=== PATIENT | female | born 1950 | race Hispanic/Latino ===

== ENCOUNTER 2017-10-08 09:21 | Outpatient (CLI) | payer MEDICARE, OTHER ==
--- NOTE | 2017-10-08 10:39 | Mammography Report ---
Screening tomomammogram and 2-D mammogram: 2-D compiled mammogram demonstrates a heterogeneously dense and symmetrically distributed fibroglandular pattern. When compared to exams dating back to August 2015 there is no obvious change in the left breast pattern. In the right breast there is a incompletely circumscribed nodule centrally in the CC projection questionably identified in the upper breast in the lateral view. In the lateral projection a small elongated circumscribed nodule is noted as well. The dominant nodule may be present on prior exams but larger on the current study. The remainder the breast pattern appears generally unchanged. Tomomammography demonstrates approximately 3 tiny circumscribed nodules in the left breast having benign characteristics. In the right breast is a cluster of 3 circumscribed nodules the largest measuring 12 mm. These are better defined in the CC than in the lateral sections. The findings are not otherwise remarkable. CAD used. Impression: Clustered nodules in the mid right breast. Recommendation: Right breast ultrasound. BI-RADS CATEGORY: 0 = Needs additional imaging evaluation ACR BI-RADS MAMMOGRAPHIC CODES: 0 = Needs additional imaging evaluation; 1 = Negative; 2 = Benign; 3 = Probably benign; 4 = Suspicious; 5 = Malignant; 6 = Known biopsy-proven malignancy COMMENT: 1. Dense breast tissue, i.e., adenosis, fibrocystic changes, etc., may obscure an underlying neoplasm. 2. Approximately 10% of cancers are not detected with mammography. 3. A negative mammography report should not delay biopsy if a clinically suspicious mass is present.
--- NOTE | 2017-10-08 10:42 | Mammography Report ---
BONE DENSITY STUDY: Postmenopausal screening. DEFINITIONS: BMD = Bone Mineral Density T-score = BMD related to mean peak bone mass of young adult (mean expressed in Standard Deviation) Z-score = Age matched BMD expressed in SD World Health Organization (WHO) Diagnostic Criteria Normal T-score > -1 SD Osteopenia T-score between -1 and -2.4 SD Osteoporosis T-score -2.5 SD or below FINDINGS: The weighted average BMD of lumbar spine L1-L4 is 0.986 with a T-score of -0.6. The weighted average BMD of the left hip is 0.872 with a T-score of -0.6. IMPRESSION: The patient's average T-score is diagnostic for normal bone density and low relative risk for fracture. NOTE: BMD is not the only risk factor for fracture; also consider factors such as the patient's age, risk of falling, previous osteoporotic fracture, family history of osteoporotic fractures, current smoker, and low body weight. Johnson's triangle is a region of interest in femur, predominantly of trabecular bone. It is not a true anatomic site, and [facility] does not recommend its use clinically.
== END 2017-10-08 09:22 | disposition home or self-care (01) ==
LOC: MAMMO 09:21
PROVIDERS: ATTEND Obstetrics & Gynecology Gynecology
DX: Z12.31 Encounter for screening mammogram for malignant neoplasm of breast (principal); Z78.0 Asymptomatic menopausal state
CPT/HCPCS: 77063; 77067; 77080

== ENCOUNTER 2017-11-03 15:03 | Outpatient (CLI) | payer MEDICARE, OTHER ==
--- NOTE | 2017-11-03 16:10 | Ultrasound Report ---
Right breast ultrasound: This examination performed based on tomomammogram in September 2017. A cluster of discrete nodules are noted in the 12:00 location. Ultrasound in the 12:00 location approximately 3 cm from the nipple demonstrates a cluster of 4 circumscribed masses. The largest of these measuring 12 mm and is anechoic. The other 3 are closely clustered and smaller. One of these measures 6.6 mm and contains a scattering of dotted echoes. A fourth nodule measuring 6.6 mm is mostly anechoic with a few echoes. anechoic. No internal flow in any of the nodules. Impression: The findings appear to represent a combination of simple and complex cysts. Recommendation: Repeat ultrasound in 6 months to reevaluate findings. BI-RADS CATEGORY: 3 = Probably benign ACR BI-RADS MAMMOGRAPHIC CODES: 0 = Needs additional imaging evaluation; 1 = Negative; 2 = Benign; 3 = Probably benign; 4 = Suspicious; 5 = Malignant; 6 = Known biopsy-proven malignancy COMMENT: 1. Dense breast tissue, i.e., adenosis, fibrocystic changes, etc., may obscure an underlying neoplasm. 2. Approximately 10% of cancers are not detected with mammography. 3. A negative mammography report should not delay biopsy if a clinically suspicious mass is present.
== END 2017-11-03 15:04 | disposition home or self-care (01) ==
LOC: US 15:03
PROVIDERS: ATTEND Obstetrics & Gynecology Gynecology
DX: N63.20 Unspecified lump in the left breast, unspecified quadrant (principal); R92.8 Other abnormal and inconclusive findings on diagnostic imaging of breast

== ENCOUNTER 2021-01-31 09:01 | Outpatient (CLI) | payer MEDICARE ==
--- NOTE | 2021-01-31 10:05 | Mammography Report ---
DIGITAL SCREENING MAMMOGRAM WITH CAD, 01/31/2021 CLINICAL INFORMATION / INDICATION: Routine screening TECHNIQUE: Digital bilateral 2D mammography was obtained in the craniocaudal and mediolateral obliqu e projections. This examination was interpreted with the benefit of Computer-Aided Detection analysis . COMPARISON: 12/07/2019 FINDINGS: Breast Density: The breasts are heterogeneously dense, which may obscure small masses. No dominant mass, suspicious calcifications, or architectural distortion in either breast. Mild benign-appearing nodularity is again seen. IMPRESSION: No mammographic evidence of malignancy. Follow up recommendation: Routine yearly BI-RADS Category 2: Benign. A "normal" or negative report should not discourage follow up or biopsy of a clinically significant f inding. A written summary of these findings will be mailed to the patient. The patient will be entered into a mammography reporting system which will generate a reminder letter for the patient's next appointmen t at the appropriate interval. The [employer] recommends yearly mammograms starting at age 40 and continuing as l arun as a woman is in good health. Breast MRI is recommended for women with an approximate 20-25% or greater lifetime risk of breast cancer, including women with a strong family history of breast or ova leon cancer or who have been treated for Hodgkin's disease. Signer Name: James Hutchins MD Signed: 01/31/2021 10:00 AM Workstation Name: [id number]
== END 2021-01-31 09:02 | disposition home or self-care (01) ==
LOC: SPVWC 09:01
PROVIDERS: ATTEND Family Medicine
DX: Z12.31 Encounter for screening mammogram for malignant neoplasm of breast (principal); N63.20 Unspecified lump in the left breast, unspecified quadrant; N63.10 Unspecified lump in the right breast, unspecified quadrant
CPT/HCPCS: 77067